=== PATIENT | male | born 1955 | race Caucasian/White ===

== ENCOUNTER → 2016-08-09 | Outpatient (CLI) | payer OTHER ==
[~2016-08-09] MED LIST: ASPIR-TRIN325 M1 PO; ATORVASTATIN CA20 MG PO; CELECOXIB200 MG PO; ENDOCET 5-3251 EACH PO; HYDROCHLOROTH12.5 M3 PO; IRON325 M1 PO; LOVENOX40 MG/0.4 SC; NORVASC10 MG PO; OMEPRAZOLE20 M2 PO; OMEPRAZOLE40 M1 PO; OXYCONTIN10 MG PO; PREDNISONE20 MG PO; SENNA PLUS TAB1 EACH PO; TYLENOL ARTHRI650 MG PO; VALTREX1000 MG PO
== END | disposition home or self-care (01) ==
DX: M17.12 Unilateral primary osteoarthritis, left knee (principal); M25.562 Pain in left knee; M25.662 Stiffness of left knee, not elsewhere classified; R26.2 Difficulty in walking, not elsewhere classified; M79.89 Other specified soft tissue disorders
CPT/HCPCS: 97110 GP; 97150 GO; 97161 GP; 97165 GO

== ENCOUNTER 2016-08-23 06:31 | Inpatient (IN) | payer OTHER ==
[~2016-08-23] VITALS: Ht 180.3 cm; Wt 117.4 kg
[~2016-08-23 06:31] MED LIST changes: -CELECOXIB200 MG PO; -ENDOCET 5-3251 EACH PO; -LOVENOX40 MG/0.4 SC; -OXYCONTIN10 MG PO; -SENNA PLUS TAB1 EACH PO
[2016-08-23 07:20] VITALS: BP 138/88
[2016-08-23 13:23] VITALS: BP 125/83
[2016-08-23 13:24] LABS: MCH 30.5 PG (29.0-34.0); MCHC 33.3 G/DL (30.0-36.0); MCV 91.5 FL (86-99); MEAN PLAT.VOLUME 11.2 uM^3 (9.0-12.4); PLATELET COUNT 261 K/uL (156-360); RBC DIS.WIDTH-SD 43.3 % (39-53); RED BLOOD COUNT 4.59 M/uL (4.00-5.50); WHITE BLOOD COUNT 4.2 K/uL (4.1-10.2)
[2016-08-23 15:50] VITALS: BP 141/54
[2016-08-23 19:46] VITALS: BP 135/70
[2016-08-23 21:02] VITALS: BP 130/79
[2016-08-24] VITALS (7 sets, daily range): BP systolic 124–177; BP diastolic 71–87
[2016-08-24 05:20] LABS: HEMATOCRIT 39.3 % (38.0-50.0); MCV 91.2 FL (86-99)
[2016-08-24 05:43] LABS: ANION GAP 7 MEQ/L (2-14); CHLORIDE 101 MEQ/L (99-109); GFR ESTIMATE (CALCULATED) > 59 mL/min/; GLUCOSE 120 mg/dL (70-99); POTASSIUM 3.7 MEQ/L (3.7-5.4); SAMPLE HEMOLYSIS CHECK 0; SAMPLE ICTERIC CHECK 0; SAMPLE LIPEMIA CHECK 0; SODIUM 135 MEQ/L (136-147); UREA NITROGEN (BUN) 15 mg/dL (9-23)
[2016-08-25 04:29] VITALS: BP 134/81
[2016-08-25 05:28] LABS: HEMATOCRIT 39.5 % (38.0-50.0); MCV 92.3 FL (86-99)
[2016-08-25 08:15] VITALS: BP 135/81
[2016-08-25] MEDS ORDERED: OXYCONTIN10 MG PO (09:23)
[2016-08-25] MEDS ORDERED: ENDOCET 5-3251 EACH PO (09:23)
[2016-08-25] MEDS ORDERED: LOVENOX40 MG/0.4 SC (09:23)
[2016-08-25] MEDS ORDERED: SENNA PLUS TAB1 EACH PO (09:23)
[2016-08-25] MEDS ORDERED: CELECOXIB200 MG PO (09:23)
[2016-08-25 11:35] VITALS: BP 155/76
[2016-08-25 13:52] VITALS: BP 124/80
== END 2016-08-25 13:57 | DRG 470 ==
LOC: 2SOUTH 06:31 → 3WEST 13:02 → SDC 13:14 → EDSTATUS 13:14 → 2SOUTH 13:16 → 3WEST 08-25 13:57
PROVIDERS: Orthopaedic Surgery
PROC: 0SRC0J9 Replacement of Right Knee Joint with Synthetic Substitute, Cemented, Open Approach (ICD-10-PCS; principal; 2016-08-23)
DX: M17.11 Unilateral primary osteoarthritis, right knee (principal); I10 Essential (primary) hypertension; E78.2 Mixed hyperlipidemia; K21.9 Gastro-esophageal reflux disease without esophagitis; F17.200 Nicotine dependence, unspecified, uncomplicated; E66.9 Obesity, unspecified; Z68.36 Body mass index [BMI] 36.0-36.9, adult
CPT/HCPCS: 73560; 80048; 85014; 85018; 85027; J0690; J1170; J1650; J3010; J7050

== ENCOUNTER → 2017-02-08 | Outpatient (CLI) | payer OTHER ==
[~2017-02-08] MED LIST changes: +CELECOXIB200 MG PO; +ENDOCET 5-3251 EACH PO; +LOVENOX40 MG/0.4 SC; +OXYCONTIN10 MG PO; +SENNA PLUS TAB1 EACH PO
== END | disposition home or self-care (01) ==
LOC: NUC 09:28
DX: M17.11 Unilateral primary osteoarthritis, right knee (principal); M19.071 Primary osteoarthritis, right ankle and foot; Z96.652 Presence of left artificial knee joint
CPT/HCPCS: 78315; A9503

== ENCOUNTER 2017-10-16 05:42 | Emergency (ER) | payer OTHER ==
[~2017-10-16] VITALS: Ht 177.8 cm; Wt 124.8 kg
[2017-10-16 06:56] LABS: HEMATOCRIT 43.8 % (38.0-50.0); HEMOGLOBIN 14.5 G/DL (12.5-16.6); MCH 30.1 PG (29.0-34.0); MCHC 33.1 G/DL (30.0-36.0); MCV 90.9 FL (86-99); PLATELET COUNT 270 K/uL (156-360); RBC DIS.WIDTH-CV 12.6 % (11.8-14.6); RBC DIS.WIDTH-SD 42.3 % (39-53); RED BLOOD COUNT 4.82 M/uL (4.00-5.50); WHITE BLOOD COUNT 3.9 K/uL (4.1-10.2)
[2017-10-16 07:28] LABS: ALKALINE PHOSPHATASE 69 IU/L (3-129); ALT (GPT) 22 IU/L (3-49); AST (GOT) 16 IU/L (2-34); CHLORIDE 104 MEQ/L (99-109); CREATININE 1.1 MG/DL (0.6-1.3); GFR ESTIMATE (CALCULATED) > 59 mL/min/ (58.99-99999); GLUCOSE 117 mg/dL (70-99); POTASSIUM 3.6 MEQ/L (3.7-5.4); SODIUM 141 MEQ/L (136-147); TOTAL BILIRUBIN 0.5 MG/DL (0.0-1.0); TOTAL PROTEIN 6.3 G/DL (6.4-8.3); UREA NITROGEN (BUN) 18 mg/dL (9-23)
[2017-10-16] MEDS ORDERED: NAPROSYN500 MG PO (09:22)
[2017-10-16] MEDS ORDERED: FLONASE16 G1 BOTH NARES (09:22)
[2017-10-16] MEDS ORDERED: TESSALON200 MG PO (09:22)
[2017-10-16] MEDS ORDERED: FLEXERIL10 MG PO (09:28)
[2017-10-16 09:59] VITALS: BP 132/81
== END 2017-10-16 10:01 | disposition home or self-care (01) ==
LOC: EME → EDBD 05:42 → EME 10:01
PROVIDERS: Nurse Practitioner Family
DX: M94.0 Chondrocostal junction syndrome [Tietze] (principal); J06.9 Acute upper respiratory infection, unspecified; Z87.891 Personal history of nicotine dependence; G47.30 Sleep apnea, unspecified; I10 Essential (primary) hypertension; Z96.659 Presence of unspecified artificial knee joint
CPT/HCPCS: 71046; 80053; 85027; 99281; 99285; J1885